=== PATIENT | female | born 1995 | race Caucasian/White ===

== ENCOUNTER 2016-10-22 16:47 | Emergency (ER) | payer OTHER | END 2016-10-22 18:45 | disposition home or self-care (01) | LOC: FER 16:47 | DX: S60.012A Contusion of left thumb without damage to nail, initial encounter (principal); W23.0XXA Caught, crushed, jammed, or pinched between moving objects, initial encounter | CPT/HCPCS: 73130; 99283 ==

== ENCOUNTER 2020-07-13 02:49 | Emergency (ER) | payer OTHER ==
[~2020-07-13 02:49] MED LIST: ADVIL200 M1 PO; FLOMAX0.4 MG PO; IBUPROFEN800 MG PO; NORCO 5-325 TA1 EACH PO; ONDANSETRON ODT4 MG SL
[2020-07-13 05:07] LABS: HCG (URINE) SCREEN NEGATIVE (NEGATIVE)
[2020-07-13 05:08] LABS: BILIRUBIN NEGATIVE (NEGATIVE); BLOOD NEGATIVE Ery/uL (NEGATIVE); CLARITY CLEAR (CLEAR); COLOR YELLOW (YELLOW); GLUCOSE (U) NORMAL (NORMAL); HCT 42.3 % (37.0-47.0); HGB 13.4 g/dl (12.5-16.0); LEUKOCYTES NEGATIVE Leu/uL (NEGATIVE); MCH 26.4 pg (25.0-31.0); MCHC 31.7 g/dL (32.0-36.0); MCV 83.3 fL (78.0-100.0); MPV 9.1 fL (6.0-9.5); NITRITE NEGATIVE (NEGATIVE); PLT 393 K/uL (150-400); PROTEIN NEGATIVE (NEGATIVE); RBC 5.08 M/uL (4.20-5.40); RDW 14.7 % (11.5-14.0); SPECIFIC GRAVITY >=1.030 (1.001-1.030); UROBILINOGEN 0.2 mg/dL (0.2-1.0); WBC 12.1 K/uL (4.0-10.5)
[2020-07-13 05:09] LABS: ALBUMIN 3.6 g/dL (3.4-5.0); BASOPHIL 0.2 % (0-2); BILIRUBIN - TOTAL 0.3 mg/dL (0.2-1.0); CREATININE 0.6 mg/dL (0.51-0.95); EOSINOPHIL 2.2 % (0-5); GLOBULIN (CALCULATION) 3.3 g/dL; LYMPHOCYTE 27.8 % (15-48); MONOCYTE 7.1 % (0-12); NEUTROPHIL 62.4 % (41-80); POTASSIUM 4.1 mmol/L (3.5-5.1); TOTAL PROTEIN 6.9 g/dL (6.4-8.2)
[2020-07-13] MEDS ORDERED: ONDANSETRON ODT4 MG SL (07:19)
[2020-07-13] MEDS ORDERED: NORCO 5-325 TA1 EACH PO (07:19)
== END 2020-07-13 08:11 | disposition home or self-care (01) ==
LOC: FER 02:49
PROVIDERS: Emergency Medicine Emergency Medical Services
DX: R10.31 Right lower quadrant pain (principal); R11.0 Nausea; Z87.442 Personal history of urinary calculi; Z98.890 Other specified postprocedural states
CPT/HCPCS: 36415; 71046; 80053; 81003; 82150; 83690; 84703; 85025; 87088; J1885; J2405; J7030

== ENCOUNTER 2021-05-29 19:41 | Inpatient (IN) | payer OTHER ==
[~2021-05-29] VITALS: Ht 167.6 cm; Wt 120.2 kg
[2021-05-29 20:42] LABS: BILIRUBIN NEGATIVE (NEGATIVE); BLOOD NEGATIVE Ery/uL (NEGATIVE); CLARITY CLEAR (CLEAR); COLOR YELLOW (YELLOW); GLUCOSE (U) NORMAL (NORMAL); LEUKOCYTES NEGATIVE Leu/uL (NEGATIVE); NITRITE NEGATIVE (NEGATIVE); PROTEIN NEGATIVE (NEGATIVE); UROBILINOGEN 0.2 mg/dL (0.2-1.0); pH 7.5 (5.0-9.0)
[2021-05-29 20:43] LABS: AMPHETAMINES NEGATIVE (NEGATIVE); BARBITURATES NEGATIVE (NEGATIVE); ECSTASY (MDMA) NEGATIVE (NEGATIVE); MARIJUANA (THC) NEGATIVE (NEGATIVE); METHADONE NEGATIVE (NEGATIVE); OPIATES NEGATIVE (NEGATIVE); OXYCODONE NEGATIVE (NEGATIVE)
[2021-05-29 21:31] LABS: HCT 36.8 % (37.0-47.0); MCH 27.1 pg (25.0-31.0); MCHC 32.6 g/dL (32.0-36.0); MCV 83.1 fL (78.0-100.0); MPV 9.4 fL (6.0-9.5); RBC 4.43 M/uL (4.20-5.40); RDW 14.6 % (11.5-14.0); WBC 12.3 K/uL (4.0-10.5)
[2021-05-29 22:13] LABS: ALBUMIN 2.3 g/dL (3.4-5.0); BILIRUBIN - TOTAL 0.3 mg/dL (0.2-1.0); CREATININE 0.52 mg/dL (0.51-0.95); GLOBULIN (CALCULATION) 3.6 g/dL; POTASSIUM 3.5 mmol/L (3.5-5.1); TOTAL PROTEIN 5.9 g/dL (6.4-8.2); URIC ACID 5.2 mg/dL (2.6-6.2)
[2021-05-30 09:06] LABS: PROTEIN:CREATININE 0.23 RATIO; URINE CREATININE 150.58 mg/dL (29.00-226.00)
[2021-05-31 05:42] LABS: HCT 35.6 % (37.0-47.0); HGB 11.4 g/dl (12.5-16.0); MCH 26.9 pg (25.0-31.0); MPV 9.3 fL (6.0-9.5); RBC 4.24 M/uL (4.20-5.40); RDW 14.9 % (11.5-14.0); WBC 13.5 K/uL (4.0-10.5)
[2021-06-01] MEDS ORDERED: IBUPROFEN800 M1 PO (07:24)
[2021-06-01] MEDS ORDERED: COLACE100 MG PO (07:24)
[2021-06-01] MEDS ORDERED: PRENATAL FORMU1 EACH PO (07:24)
== END 2021-06-01 10:17 | disposition home or self-care (01) | DRG 805 ==
LOC: FOD 19:41 → FOB 19:42 → FOD 20:59 → FOB 21:00 → FOD 21:00 → FOB 06-01 10:17
PROVIDERS: ADMIT Obstetrics & Gynecology
PROC: 10E0XZZ Delivery of Products of Conception, External Approach (ICD-10-PCS; principal; 2021-05-30)
PROC: 0HQ9XZZ Repair Perineum Skin, External Approach (ICD-10-PCS; 2021-05-30)
DX: O13.4 Gestational [pregnancy-induced] hypertension without significant proteinuria, complicating childbirth (principal); U07.1 COVID-19; Z37.0 Single live birth; O98.52 Other viral diseases complicating childbirth; Z3A.39 39 weeks gestation of pregnancy; O34.211 Maternal care for low transverse scar from previous cesarean delivery; O99.214 Obesity complicating childbirth; O69.81X0 Labor and delivery complicated by cord around neck, without compression, not applicable or unspecified; O70.0 First degree perineal laceration during delivery; O99.824 Streptococcus B carrier state complicating childbirth
CPT/HCPCS: 36415; 80053; 80305; 81003; 82570; 83615; 84156; 84550; 86850; 86900; 86901; J1200; J2405; J2540; J2765; J3475; J7120; U0002

== ENCOUNTER 2021-10-06 18:05 | Emergency (ER) | payer OTHER ==
[~2021-10-06 18:05] MED LIST changes: +COLACE100 MG PO; +IBUPROFEN800 M1 PO; +PRENATAL FORMU1 EACH PO
[2021-10-06 19:08] LABS: BILIRUBIN NEGATIVE (NEGATIVE); BLOOD NEGATIVE Ery/uL (NEGATIVE); CLARITY CLEAR (CLEAR); COLOR YELLOW (YELLOW); GLUCOSE (U) NORMAL (NORMAL); LEUKOCYTES NEGATIVE Leu/uL (NEGATIVE); NITRITE NEGATIVE (NEGATIVE); PROTEIN NEGATIVE (NEGATIVE); SPECIFIC GRAVITY >=1.030 (1.001-1.030); UROBILINOGEN 0.2 mg/dL (0.2-1.0)
[2021-10-06 19:28] LABS: BASOPHIL 0.2 % (0-2); EOSINOPHIL 1.9 % (0-5); HCT 43.2 % (37.0-47.0); HGB 13.8 g/dl (12.5-16.0); LYMPHOCYTE 23.2 % (15-48); MCH 26.8 pg (25.0-31.0); MCHC 31.9 g/dL (32.0-36.0); MCV 83.9 fL (78.0-100.0); MONOCYTE 6.4 % (0-12); NRBC 0; PLT 369 K/uL (150-400); RBC 5.15 M/uL (4.20-5.40); RDW 13.6 % (11.5-14.0)
[2021-10-06 19:54] LABS: ALBUMIN 3.8 g/dL (3.4-5.0); BILIRUBIN - TOTAL 0.3 mg/dL (0.2-1.0); CREATININE 0.6 mg/dL (0.51-0.95); GLOBULIN (CALCULATION) 3.7 g/dL; POTASSIUM 3.9 mmol/L (3.5-5.1); TOTAL PROTEIN 7.5 g/dL (6.4-8.2)
[2021-10-06] MEDS ORDERED: BENTYL10 MG PO (22:11)
== END 2021-10-06 22:30 | disposition home or self-care (01) ==
LOC: FER 18:05
PROVIDERS: Nurse Practitioner Family
DX: R10.11 Right upper quadrant pain (principal); Z28.310 Unvaccinated for COVID-19
CPT/HCPCS: 36415; 80053; 81003; 82150; 83690; 85025; J1885; J2405; J7030; Q9967